=== PATIENT | female | born 1970 | race African-American/Black ===

== ENCOUNTER 2023-01-21 09:07 | Emergency (ER) | payer OTHER, SELFPAY ==
--- NOTE | ~2023-01-21 | CT_ITS ---
EXAMINATION: CT abdomen pelvis w con DATE: 01/21/2023 10:21 INDICATION: 3 days of persistent diarrhea TECHNIQUE: Computed tomography (CT) of the abdomen and pelvis was performed with 100 mL Omnipaque-350 intravenous contrast. Automated exposure control and iterative reconstruction technique were employe d. The dose-length product was 433.17 mGy-cm. COMPARISON: None FINDINGS: Lung bases are clear. Heart size is normal. No pericardial or pleural effusion. Cholecystectomy clips at the gallbladder fossa. Liver, spleen, pancreas, bilateral adrenal glands and left kidney are norm al. 6 mm cyst at the lower pole of the right kidney. Fluid throughout the large and small bowel consi stent with diarrhea. No bowel obstruction. Normal appendix. 4 cm calcified uterine fibroid. Bladder a nd bilateral adnexa are unremarkable. No free intraperitoneal gas or fluid. No pathologically enlarge d abdominal or pelvic lymphadenopathy. Severe spondylosis at L5-S1 with mild spondylosis in the more cephalad lumbar and lower thoracic spine. IMPRESSION: 1. Fluid throughout the bowels consistent with nonspecific diarrhea. No other acute intra-abdominal/p elvic process. 2. Calcified uterine fibroid. Reviewed, dictated and finalized at location B. IMPRESSION: 1. Fluid throughout the bowels consistent with nonspecific diarrhea. No other a cute intra-abdominal/pelvic process. 2. Calcified uterine fibroid.
[2023-01-21 09:21] VITALS: BP 113/93; PULSE 103; RESP 20; TEMP 37; O2SAT 99
--- NOTE | 2023-01-21 09:31 | ED.NAVMDI ---
HPI - Nausea/Vomiting/Diarrhea General Chief complaint: Nausea/Vomiting/Diarrhea Stated complaint: sick for 4 days Time Seen by Provider: 01/21/23 09:11 Source: patient Limitations: no limitations History of Present Illness HPI Narrative: This 52-year-old female patient with past medical history of prediabetes, hypertension presents with complaints of having 4 days of nausea, vomiting and diarrhea. She denies any fevers, known ill contacts and no new foods, or new locations eating out. She states the diarrhea has worsened over the course of the past few days and has gradually changed in color from Black to green. Vomiting yesterday appeared ileus. No hematemesis, or hematochezia. She has not taken any llle-war-yfjaldn medications for her symptoms. She states her appetite is decreased and she has not been able to drink. Nothing makes the pain worse or better Related Data Allergies Allergy/AdvReac Type Severity Reaction Status Date / Time codeine Allergy Unknown Vomiting Verified 01/21/23 09:25 Review of Systems Review of Systems: see HPI All systems reviewed & are unremarkable except as noted in HPI and below PMFSH Family History Family History (Updated 05/11/18 @ 11:02 by DOCTOR UNKNOWN) Other Cerebrovascular accident Diabetes mellitus Family history of cardiovascular disease Family history of kidney disease Hypertension Social History Social History Smoking status: Never smoker Alcohol intake: current Exam Const: General: healthy appearing, no acute distress and alert; No ill appearing Nutritional Appearance: well nourished Orientation/consciousness: patient oriented x3 Limitations: no limitations HENMT: Head: normal to inspection Eyes: Conjunctivae: conjunctivae normal Neck: Neck: normal visual inspection and no lymphadenopathy Chest: Chest palpation & inspection: normal inspection of the chest and no tenderness Resp: Effort & Inspection: normal respiratory effort Auscultation: clear to auscultation bilaterally Cardio: Rate: regular rate Rhythm: regular rhythm Heart sounds: no murmurs GI: Inspection: non-distended GI Palp: Yes Soft to palpation, No Tenderness to palpation present (GI), No Guarding due to palpation present (GI) and No Rigid due to palpation Auscultation: Hyperactive bowel sounds present Back/Spine/Pelvis: Back: no CVA tenderness Skin: General skin exam: normal color Rashes: no rashes Wounds: no wounds Neuro: General: patient oriented x3 and moves all extremities Speech: normal speech Extrem: General: normal to inspection and no pedal edema Psych: Mental Status: mental status grossly normal Affect: normal affect Course Course Emergency Course: patient's workup was significant for dehydration. Imaging did not show any acute intra-abdominal findings and other then a colitis. She will be discharged home with oral antibiotics of Cipro and Flagyl and advised to take Imodium as needed. She was rehydrated with IV fluid bolus here and will be encouraged for continued oral hydration at home. Patient is stable and agreeable to plan of care at time of discharge. Vital Signs Vital signs: Vital Signs Temperature 98.6 F 01/21/23 09:21 Pulse Rate 103 H 01/21/23 09:21 Respiratory Rate 20 01/21/23 09:21 Blood Pressure 113/93 H 01/21/23 09:21 Pulse Oximetry 99 01/21/23 09:21 Oxygen Delivery Room Air 01/21/23 09:21 Temperature 97.6 F 01/21/23 10:44 Pulse Rate 91 01/21/23 10:44 Respiratory Rate 18 01/21/23 10:44 Blood Pressure 112/71 01/21/23 10:44 Pulse Oximetry 98 01/21/23 10:44 Oxygen Delivery Room Air 01/21/23 09:21 MDM - Nausea/Vomiting/Diarrhea MDM Narrative Medical decision making narrative: See ED course Differential Diagnosis Differential diagnosis: Likely gastroenteritis, drug-induced nausea and vomiting, dehydration and other ( acute abdomen, pancreatitis, appendicitis) Medical Records Attes
[2023-01-21 09:44] LABS: Basophils Percent Auto 0.3 % (0.2-1.2); Eosinophils Absolute Auto 0.1 K/mm3 (0-0.3); Eosinophils Percent Auto 1.5 % (0-4.4); Hemoglobin 13.5 g/dL (12.0-15.0); Immature Granulocyte Absolute 0.02 K/mm3 (0.00-0.031); Immature Granulocyte Percent A 0.3 % (0-0.5); Lymphocytes Absolute Auto 2.68 K/mm3 (0.9-3.2); Lymphocytes Percent Auto 36.4 % (18.3-44.2); Mean Corpuscular HGB Conc 32.1 g/dl (32-36); Mean Corpuscular Hemoglobin 30.3 pg (26-34); Mean Corpuscular Volume 94.2 fl (80-100); Mean Platelet Volume 10.5 fl (7.4-10.4); Monocytes Absolute Auto 1.1 K/mm3 (0.1-0.6); Monocytes Percent Auto 14.4 % (2.6-8.5); Neutrophils Absolute Auto 3.5 K/mm3 (1.3-6.7); Neutrophils Percent Auto 47.1 % (45.5-73.1); Platelet Count Result 250 k/mm3 (150-375); Red Blood Count 4.46 M/mm3 (4.2-5.4); Red Cell Distribution Width 13.2 % (11.5-14.5); White Blood Count 7.4 K/mm3 (4.5-10.0)
[2023-01-21] MEDS: SODIUM CHLORIDE 0.9% IV 500 ML 999 ML IV CONT (09:49)
[2023-01-21 09:50] LABS: Alanine Aminotransferase 36 U/L (6-35); Albumin Level 4.8 g/dL (3.5-5.1); Alkaline Phosphatase 67 U/L (38-126); Anion Gap 11 mmol/L (8-16); Appearance Urine Clear (Clear); Aspartate Amino Transferase 36 U/L (14-36); Bacteria Urine None Seen /hpf; Bilirubin Urine Negative (Negative); Bilirubin,Total 0.5 mg/dL (0.2-1.3); Blood Urea Nitrogen 26 mg/dL (7-17); Blood Urine Negative (Negative); Calcium 9.5 mg/dL (8.4-10.2); Carbon Dioxide 24 mmol/L (22-30); Chloride 102 mmol/L (98-107); Color Urine Dark Yellow (Yellow); Estimated CRCL calculation 57 ml/min; Estimated Glomerular Filt Rate > 60; Glucose 128 mg/dL (65-110); Glucose Urine UA Negative (Negative); Ketones Urine 3+ mg/dL (Negative); Leukocyte Esterase Ur Negative LEU/UL (Negative); Lipase 309 U/L (23-300); Magnesium 2.2 mg/dL (1.6-2.3); Nitrate Urine Negative (Negative); Non Pathogenic Casts 0-2; Potassium 3.5 mmol/L (3.4-5.0); Protein Urine 1+ mg/dL (Negative); Sodium 137 mmol/L (137-145); Specific Grav Ur 1.033 (1.001-1.035); Squamous Epithelial Cell Urine Occasional /hpf (Few); WBC Urine 0-5 /hpf
[2023-01-21 09:53] LABS: Add Urine Microscopic? YES
[2023-01-21 09:54] VITALS: BP 119/72; PULSE 88
[2023-01-21 09:55] VITALS: BP 135/76; PULSE 98
[2023-01-21 09:56] VITALS: BP 112/76; PULSE 102
[2023-01-21 10:44] VITALS: BP 112/71; PULSE 91; RESP 18; TEMP 36.4; O2SAT 98
[2023-01-21 11:28] VITALS: BP 112/71; PULSE 92; RESP 18
== END 2023-01-21 11:29 | disposition home or self-care (01) ==
LOC: ANHED 11:17
PROVIDERS: Emergency Provider Nurse Practitioner Adult Health; PCP Nurse Practitioner Family
DX: E86.0 Dehydration (principal); R19.7 Diarrhea, unspecified; I10 Essential (primary) hypertension; R73.03 Prediabetes; D25.9 Leiomyoma of uterus, unspecified
CPT/HCPCS: 36415; 74177; 80053; 81001; 81025; 83690; 83735; 85025; 96360; 99284; J7040; Q9967

== ENCOUNTER 2024-10-31 17:06 | Emergency (ER) | payer OTHER, SELFPAY ==
--- NOTE | ~2024-10-31 | XR_ITS ---
HISTORY: pain and swelling no known injury COMPARISON: None TECHNIQUE: 4 views of the right knee were performed. FINDINGS: No acute or subacute fracture, erosion, lytic or sclerotic lesion. Medial tibiofemoral joint space narrowing is identified. No suprapatellar joint effusion is identified. The infrapatellar joint space is clear. IMPRESSION: No acute fracture or dislocation, as detailed above. Reviewed, dictated and finalized at location A.
--- NOTE | 2024-10-31 17:09 | ED_ITS ---
HPI - General Adult General Chief complaint: Extremity Injury, Lower Stated complaint: Pain In Both Legs Time Seen by Provider: 10/31/24 17:15 Source: patient, RN notes reviewed and old records reviewed Mode of arrival: ambulatory Limitations: no limitations History of Present Illness HPI narrative: 54-year-old female presents to the [facility] with complaints of pain to the right knee. States has been going on for 1-2 weeks. Related Data Home Medications ?Medication ?Instructions ?Recorded ?Confirmed ?Last Taken ?Type lisinopril 40 mg tablet mg 10/31/24 Unknown History metformin 500 mg tablet,extended mg PO 10/31/24 Unknown History release 24 hr norethindrone (contraceptive) 0.35 mg 10/31/24 Unknown History mg tablet Allergies Allergy/AdvReac Type Severity Reaction Status Date / Time codeine Allergy Unknown Vomiting Verified 10/31/24 17:20 Review of Systems Review of Systems: All systems reviewed & are unremarkable except as noted in HPI and below Constitutional: Constitutional: Reports no additional constitutional complaints ENT: Reports system reviewed and no additional complaints, except as documented Cardiovascular: Cardiovascular: Reports no additional cardiovascular complaints, Denies chest pain and Denies dyspnea Respiratory: Respiratory: Reports no additional respiratory complaints, Denies chest congestion, Denies cough and Denies dyspnea Musculoskeletal: Musculoskeletal: Reports as per HPI Integumentary/Breasts: Skin/Breast: Reports system reviewed and no additional complaints, except as docu PMFSH Family History Family History Other Cerebrovascular accident Diabetes mellitus Family history of cardiovascular disease Family history of kidney disease Hypertension Social History Social History Smoking status: Never smoker Alcohol intake: current Comments At the time of my signature, I reviewed and agree with the nursing past medical, surgical, social, and family history. There is no relevant family history pertinent to the patient complaint. Exam Const: General: cooperative, healthy appearing, comfortable, no acute distress, well developed, alert and well nourished Nutritional Appearance: well nourished Orientation/consciousness: patient oriented x3 Limitations: no limitations HENMT: Head: normal to inspection Eyes: General: appearance normal, both eyes and all related structures Alignment and Position: alignment normal Neck: Neck: normal visual inspection, full ROM, no lymphadenopathy and no meningeal signs Chest: Chest palpation & inspection: normal inspection of the chest Resp: Effort & Inspection: normal respiratory effort and able to speak in complete sentences Cardio: Rate: regular rate Skin: General skin exam: normal color and no rashes or lesions noted Neuro: General: patient oriented x3, gait normal, moves all extremities and no meningeal signs Cognition (Neuro): normal cognition Speech: normal speech Gait exam (Neuro): Normal gait present Extrem: General: normal to inspection, full ROM, capillary refill normal and normal gait Right lower extremity: knee Details: tenderness (Medial and posterior), swelling (Medial lower) and normal ROM; no lacerations, no ecchymosis, no foreign bodies, no penetrating wound, no deformity and no unusual warmth, lower leg Details: normal to inspection; no tenderness and ankle Details: normal to inspection Psych: Appearance: grossly normal and well kempt Mental Status: mental status grossly normal Speech and movement: Normal speech and movement present and Clear speech present Affect: normal affect Attitude: cooperative Course Course Level of Care: Express Care Visit Vital Signs Vital signs: Vital Signs Temperature 98.0 F 10/31/24 17:16 Pulse Rate 86 10/31/24 17:16 Respiratory Rate 18 10/31/24 17:16 Blood Pressure 148/94 H 10/31/24 17:16 Pulse Oximetry 100 10/31/24 17:16 Oxygen Delivery Room Air 10/31/24 17:16 Temperature 98.0 F 10/31/24 17:16 Pulse Rate 86 10/31/24 17:16 Respiratory Rate 18 10/31/24 17:16 Blood Pressure 148/94 H 10/31/24 17:16 Pulse Oximetry 100 10/31/24 17:16 Oxygen Delivery Room Air 10/31/24 17:16 Reviewed Medical Decision Making MDM Narrative Medical decision making narrative: Patient sitting comfortably in exam room. Nontoxic, vitals stable. Patient in no acute distress Patient presents for right knee discomfort. Small effusion noted to the medial lower aspect. Tenderness to the Madrid's cyst area. No acute findings noted on x-ray Patient appropriate for outpatient treatment with close follow-up Discharge instructions reviewed with patient, as well as provided in writing per nursing staff. The instructions also include specific and strict return/GO TO THE ER as well as f/u information. All questions have been answered, and the patient deny any further questions with discharge and discharge plan. Some parts of this dictation were generated by voice recognition software and may contain typographical and/or grammatical inaccuracies. Differential Diagnosis Differential Diagnosis: Madrid cyst, arthritis, effusion, sprain, strain, ACL, osteoarthritis Medical Records Medical records reviewed: Yes I reviewed the external patient's medical records. Vital Signs Vital Signs: Vital Signs Temperature 98.0 F 10/31/24 17:16 Pulse Rate 86 10/31/24 17:16 Respiratory Rate 18 10/31/24 17:16 Blood Pressure 148/94 H 10/31/24 17:16 Pulse Oximetry 100 10/31/24 17:16 Oxygen Delivery Room Air 10/31/24 17:16 Temperature 98.0 F 10/31/24 17:16 Pulse Rate 86 10/31/24 17:16 Respiratory Rate 18 10/31/24 17:16 Blood Pressure 148/94 H 10/31/24 17:16 Pulse Oximetry 100 10/31/24 17:16 Oxygen Delivery Room Air 10/31/24 17:16 Reviewed Lab Data Lab results reviewed: Yes I reviewed the patient's lab results. Labs: Reviewed Critical Care Time Critical Care Time Critical Care Time: No Discharge Plan Discharge Clinical Impression: Acute knee pain Qualifiers: Laterality: right Qualified Code(s): M25.561 - Pain in right knee Patient Disposition: Home Condition: Stable Instructions: Antibiotic Form, Swollen Knee Joint (ED) Additional Instructions: Your Xray did not show a fracture. Wear good supportive shoes at all times. Ice should be applied to help reduce swelling. It can be used for 20 to 30 minutes, every 2-3 hours while awake. Do not apply ice directly to your skin. A knee brace is recommended to wear during the day. You can alternate ibuprofen 600mg and Tylenol 650mg every 4 hours as needed for pain Please schedule a follow-up visit with your personal physician for further evaluation and treatment within 2 weeks especially if symptoms persist. For new or worsening symptoms go directly to the emergency room Patient Language: Turkmen Prescriptions: No Action norethindrone (contraceptive) 0.35 mg tablet lisinopril 40 mg tablet metformin 500 mg tablet extended release 24 hr PO Follow-up/Referrals: Berny,Junaid Grey APRN [Primary Care Provider] - 2 Weeks (express care follow up ) Stand Alone Forms: Work/School Release IP Time of Disposition: 17:35
[2024-10-31 17:16] VITALS: BP 148/94; PULSE 86; RESP 18; TEMP 36.7; O2SAT 100
== END 2024-10-31 17:41 | disposition home or self-care (01) ==
PROVIDERS: Emergency Provider Nurse Practitioner; PCP Nurse Practitioner Family
DX: M25.561 Pain in right knee (principal); I10 Essential (primary) hypertension; R73.03 Prediabetes
CPT/HCPCS: 73564; 99213; G0463